=== PATIENT | male | born 1975 | race Caucasian/White ===

== ENCOUNTER → 2024-02-13 10:25 | Outpatient (REF) | payer OTHER, SELFPAY | LOC: RCS 10:25 | PROVIDERS: ATTENDING PHYSICIAN Internal Medicine Cardiovascular Disease; FAMILY PHYSICIAN Internal Medicine | DX: R06.02 Shortness of breath (principal) | CPT/HCPCS: 93017 ==

== ENCOUNTER 2024-09-24 06:18 | Day surgery (SDC) | payer OTHER, SELFPAY | END 2024-09-24 09:17 | disposition home or self-care (01) | LOC: GI 06:18 | PROVIDERS: ATTENDING PHYSICIAN Internal Medicine Gastroenterology | DX: Z12.11 Encounter for screening for malignant neoplasm of colon (principal); K64.8 Other hemorrhoids | CPT/HCPCS: G0121 ==